=== PATIENT | male | born 1935 | race Caucasian/White ===

== ENCOUNTER 2017-07-03 10:29 | Day surgery (SDC) | payer MEDICARE, OTHER ==
[2017-07-01 11:00] LABS: ASPARTATE AMINO TRANSFERASE 17 U/L (15-37); BLOOD UREA NITROGEN 15 mg/dL (7-18)
[~2017-07-03] VITALS: Ht 180.3 cm; Wt 77.6 kg
[~2017-07-03 10:29] MED LIST: AMLO5TAB2 PO; ASPI81TA50 PO; ATOR40TA PO; BUPIVACAINE/PF 0.5% ONE; CHOL2000 PO; GLIP1TAB4 PO; GLIP2.5T3 PO; METO-99 PO; RIVA20TA PO; SAXA1TBM2 PO; SITA100T PO; VALS320T2 PO; [UNRECOGNIZED DRUG - CODE] PO
[2017-07-03] MEDS ORDERED: LACTATED RINGERS 1,000 ML IV SCH ×2 (10:52→14:10)
[2017-07-03 11:22] VITALS: BP 158/82
[2017-07-03] MEDS ORDERED: PROPOFOL 10 MG/ML, 20ML ONE (12:48)
[2017-07-03] MEDS ORDERED: ONDANSETRON 2MG/ML, 2ML ONE (12:48)
[2017-07-03] MEDS ORDERED: CEFAZOLIN 1,000 MG ONE (12:48)
[2017-07-03] MEDS ORDERED: FENTANYL PF 100 MCG/2ML ONE ×2 (12:49)
[2017-07-03] MEDS ORDERED: FENTANYL PF 100 MCG/2ML IV PRN (13:30)
[2017-07-03] MEDS ORDERED: METOPROLOL 1 MG/ML, 5ML IV PRN (13:30)
[2017-07-03] MEDS ORDERED: hydrALAzine 20 MG/ML, 1ML IV PRN (13:30)
[2017-07-03] MEDS ORDERED: EPHEDRINE 50 MG/ML, 1ML IVPush PRN (13:30)
[2017-07-03] MEDS ORDERED: HYDROmorphone 1 MG/ML, 1ML IV PRN (13:30)
[2017-07-03] MEDS ORDERED: ALBUTEROL SULFATE 2.5 MG/3 ML NPPB PRN (13:30)
[2017-07-03] MEDS ORDERED: OXYcodone 5 MG/5 ML ORAL.SOL UDC PO PRN (13:30)
[2017-07-03] MEDS ORDERED: LABETALOL 5MG/ML, 20ML IV PRN (13:30)
[2017-07-03] MEDS ORDERED: ACETAMINOPHEN 325 MG TABLET PO PRN (13:30)
[2017-07-03] MEDS ORDERED: ONDANSETRON 2MG/ML, 2ML IVPush PRN ×2 (13:30→14:30)
[2017-07-03] MEDS ORDERED: morphine SULFATE 10 MG/ML, 1ML IVPush PRN (14:30)
[2017-07-03] MEDS ORDERED: ACETAMINOPHEN 650 MG/20.3 ML UDC ONE (14:44)
[2017-07-03] MEDS ORDERED: OXYcodone 5 MG/5 ML ORAL.SOL UDC ONE (14:44)
== END 2017-07-03 16:35 | disposition home or self-care (01) ==
LOC: OUT 10:29
PROVIDERS: ATTEND Surgery
DX: K40.90 Unilateral inguinal hernia, without obstruction or gangrene, not specified as recurrent (principal); D17.1 Benign lipomatous neoplasm of skin and subcutaneous tissue of trunk; Z95.0 Presence of cardiac pacemaker; E11.9 Type 2 diabetes mellitus without complications; I10 Essential (primary) hypertension
CPT/HCPCS: 21933; 36415; 49505; 80053; 82962; 88304; 93005; C1781; J0690; J2405; J2704; J3010; J3490; J7120